=== PATIENT | female | born 1945 | race Caucasian/White ===

== ENCOUNTER → 2024-01-07 15:56 | Outpatient (REF) | payer MEDICARE, OTHER, SELFPAY | LOC: WDC 15:56 | PROVIDERS: ATTENDING PHYSICIAN Family Medicine | DX: Z12.31 Encounter for screening mammogram for malignant neoplasm of breast (principal) | CPT/HCPCS: 77063; 77067 ==

== ENCOUNTER 2024-07-29 14:04 | Emergency (ER) | payer MEDICARE, OTHER, SELFPAY ==
[2024-07-29 14:15] VITALS: BP 149/77
--- NOTE | 2024-07-29 17:06 | ED.GENMED ---
History of Present Illness
General
Chief Complaint: Back Pain
Time Seen by Provider: 07/29/24 16:52
History of Present Illness
History of Present Illness:
Patient is a 78-year-old woman presenting to the emergency department with back pain. Patient states that she has had right lower back pain for a few weeks now. It acutely worsened when she went bowling 2 weeks ago. She states this is in her
right lower back. It does not radiate. No numbness tingling. No saddle anesthesia. No urinary retention. No recent falls or trauma. She did go to the orthopedic surgeon a few days ago who started her on prednisone. They ordered an MRI however
patient states that she is having difficulty scheduling it so she came here to see if we could help her get it done while she is here. She has not been taking any additional
Phy Exam
Physical Exam
Physical Exam:
GENERAL: in no acute distress
HEENT: normocephalic, extraocular movements intact, moist oral mucosa
NECK: normal inspection
RESPIRATORY: no respiratory distress, clear to auscultation bilaterally
CARDIOVASCULAR: regular rate and rhythm
ABDOMEN/: soft, non-distended, non-tender to palpation, no rebound or guarding
EXTREMITIES: non-tender, no edema/swelling
NEUROLOGIC: awake and alert, moves all extremities, equal strength in lower extremities, sensation
Back: No midline spinal tenderness, right lower back tenderness to palpation
SKIN: warm
Course
Orders/Labs/Results
Orders:
Orders
07/29/24 17:04
Acetaminophen [Tylenol] 650 mg PO NOW STA
Ketorolac [Toradol] 15 mg IM NOW STA
07/29/24 17:15
Lidocaine [Lidocaine 4% Patch] 1 patch TOPICAL DAILY
Apply Lidocaine patch(s) to:: right lower back
Vital Signs
Initial and Last Documented VS:
Initial Vital Signs
Temp Pulse Resp Pulse Ox
98.1 F 69 18 100
07/29/24 14:13 07/29/24 14:13 07/29/24 14:13 07/29/24 14:13
Last Documented Vital Signs
Temp Pulse Resp BP Pulse Ox
98.1 F 69 18 149/77 100
07/29/24 14:13 07/29/24 14:13 07/29/24 14:13 07/29/24 14:15 07/29/24 14:13
MDM/Problems Addressed
Differential Diagnosis Includes:
MSK pain most likely. Low concern for acute life threatening etiology. Patient does not have red flag s/s for cauda equina syndrome, osteomylitis, discitis, epidural abscess. History and exam not consisitent with traumatic fracture or pathologic
fracture. Hx and exam of low concern for renal stone or pyelo and not consistent with atoric catastrophe. No imaging indicated at this time. Will give lidocaine patch Tylenol as well as Toradol. Patient educated on physical therapy as well as
following up with orthopedic surgery.
*Critical Care Note
Total Time (30-74mins, 75-104mins- exclusive of procedures): Not Applicable
ED Attending Note
-
Portions of this chart may have been created with voice recognition software.� Occasional wrong word or��sound alike� substitutions may have occurred due to the inherent limitations of voice recognition software.
Discharge Plan
Departure
Patient Disposition: Home (Routine Discharge)
Date of Disposition: 07/29/24
Time of Disposition: 17:29
Patient with high blood pressure during this ER visit?: Yes
Discharge Problem:
Low back pain
Instructions: Low Back Pain (DC), Back exercises
Referrals:
Rafaela Gonzalez MD [Family Provider] -
Activity Restrictions/Additional Instructions:
The exact cause of your back pain is unclear but it is likely musculoskeletal/mechanical low back pain that usually improves with conservative treatment after a few weeks.
You can take ibuprofen 400 mg (2 [id number] tablets) every 4 hours or 600 mg (3 hrcg-[id number]-[id number] tablets) every 6 hours as needed for pain. Take the lowest effective dose -- the 600 mg dose has an anti-inflammatory effect, but evidence
suggests that this dose may not get you better pain control over a 400 mg dose.
You can take Tylenol 1000 mg (3 regular strength tablets or 2 extra strength tablets) every 6 hours as needed for pain up to 3 doses per day.
Wean yourself off of the ibuprofen as soon as your pain is tolerable. This medication, if used long-term, can have negative effects on the kidneys, heart and stomach. Tylenol is the safest medication but does not have the anti-inflammatory component.
Apply a heating pad 15-20 minutes at a time every few hours. Make sure not to sleep with the heating pad on as it can burn your skin. You may also try ice every few hours -- make sure not to apply an icepack directly to the skin. You can alternate
the two as well.
You can apply a lidocaine patch to the painful area every 8 hours as well.
Return to the emergency department if you develop inability to urinate, are unable to hold your stool, have numbness when your wipe yourself after using the bathroom, develop new weakness in the legs, develop a fever, if you have worsening pain or
if you have any increasing concerns.
If your pain is not improving over the next 1-2 weeks, please follow-up with your primary care doctor.
Interventions
Interventions:
*Risk Screen - Suicide Last Done: 07/29/24 14:16
*General Assessment Last Done: 07/29/24 14:16
*Neglect/Abuse Screening Last Done: 07/29/24 14:16
*ED COVID-19 Vaccine History Last Done: 07/29/24 14:16
ED-Musculoskeletal Assessment Last Done: 07/29/24 15:45
Discharge Date and Time
Print Language: [place] CITIZ[place]
[2024-07-29] MEDS: TORADOL 15 MG IM (17:30)
[2024-07-29] MEDS: LIDOCAINE 4% PATCH 1 PATCH TOPICAL (17:30)
[2024-07-29] MEDS: TYLENOL 650 MG PO (17:30)
== END 2024-07-29 17:40 | disposition home or self-care (01) ==
LOC: EMR 14:04
PROVIDERS: EMERGENCY PHYSICIAN Student in an Organized Health Care Education/Training Program; FAMILY PHYSICIAN Family Medicine
DX: M54.50 Low back pain, unspecified (principal)
CPT/HCPCS: 99282; 96372

== ENCOUNTER → 2024-07-31 07:24 | Outpatient (REF) | payer MEDICARE, OTHER, SELFPAY | LOC: PAVMRI 07:24 | PROVIDERS: ATTENDING PHYSICIAN Physician Assistant; FAMILY PHYSICIAN Family Medicine | DX: M54.50 Low back pain, unspecified (principal); M62.830 Muscle spasm of back; M47.816 Spondylosis without myelopathy or radiculopathy, lumbar region | CPT/HCPCS: 72148 ==

== ENCOUNTER → 2025-01-12 12:49 | Outpatient (REF) | payer MEDICARE, OTHER, SELFPAY | LOC: WDC 12:49 | PROVIDERS: ATTENDING PHYSICIAN Family Medicine | DX: Z12.31 Encounter for screening mammogram for malignant neoplasm of breast (principal) | CPT/HCPCS: 77063; 77067 ==